=== PATIENT | female | born 1995 | race Caucasian/White ===

== ENCOUNTER 2018-05-28 06:44 | Day surgery (SDC) | payer BC ==
[2018-05-24 12:08] VITALS: BMI 19.1
[2018-05-28] MEDS ORDERED: ceFAZolin SODIUM 1 GM VIAL ONE (09:31)
[2018-05-28] MEDS ORDERED: PROPOFOL 20 ML ONE ×3 (09:32)
[2018-05-28] MEDS ORDERED: KETOROLAC TROMETHAMINE 30 MG/1 ML VIAL ONE (09:33)
[2018-05-28] MEDS ORDERED: DEXAMETHASONE SOD PHOSPHATE 4 MG/1 ML VIAL ONE (09:33)
[2018-05-28] MEDS ORDERED: ONDANSETRON 4 MG/2 ML VIAL ONE ×2 (09:33→10:51)
[2018-05-28] MEDS ORDERED: ONDANSETRON 4 MG/2 ML VIAL IVPUSH PRN (09:55)
[2018-05-28] MEDS ORDERED: oxyCODONE HCL 5 MG TABLET PO PRN (09:55)
[2018-05-28] MEDS ORDERED: LACTATED RINGERS SOLUTION 1,000 ML IV SCH (10:00)
[2018-05-28] MEDS ORDERED: LIDOCAINE HCL 2% (20ML MULTI-DOSE VIAL) NR ONE (10:15)
[2018-05-28] MEDS ORDERED: MIDAZOLAM HCL 2 MG/2 ML SINGLE DOSE VIAL ONE ×2 (10:15→10:35)
[2018-05-28] MEDS ORDERED: BUPIVACAINE HCL/PF 2.5 MG/ML - 30 ML VIAL IJ ONE (11:17)
[2018-05-28] MEDS ORDERED: BUPIVACAINE HCL/PF 0.25% (2.5MG/ML) 10 ML VIAL IJ ONE (11:23)
[2018-05-28 12:17] VITALS: TEMP 98
[2018-05-28 13:24] VITALS: BP 110/70; PULSE 67
--- NOTE | 2018-05-31 13:07 | OP ---
DATE OF OPERATION: 05/28/2018 SURGEON: Michael Lee MD MANAGER BUSINESS: BETSEY Louise PREOPERATIVE DIAGNOSES: Medial epicondylar release with fascial release of the flexion pronator muscle complex. FINDINGS: Thickened scar tissue at tendinous insertion and fascial thickened scar tissue at muscle tendinous junction. DESCRIPTION OF PROCEDURE: Informed consent was obtained. The patient came to the operating room, where the right upper extremity was prepped and draped in sterile fashion. Point of maximal tenderness was marked prior to start of surgery. Incision was made approximately 6 cm in length from the medial epicondyle distally. The tendon was identified. The central 1/3 was excised using inverted U incision. Tendon was lifted, and on the undersurface was removed thickened scar tissue. This was sent to Pathology for evaluation. Rongeur was used along the insertion to create a bleeding interface. Evaluation of the tendon and muscle tendinous complex there was thickened scar tissue and fascia at the muscular tendinous junction. This was released with Goodwin allowing for release of the constriction and scar tissue. The wound was then irrigated with copious amounts of irrigation. The tendon was reapproximated in a slightly position with a 0 Vicryl [id number] interrupted sutures. Layered closure with 2-0 Vicryl and 4-0 nylon was performed. Sterile dressing was placed. The patient was transferred to recovery room without complication. The PA listed above was present and assisted at surgery. Their presence was absolutely medically necessary for the completion of the procedure. They helped hold the arthroscopy, pass instruments (and implants when indicated) and the procedure could not have been completed without their assistance. MICHAEL LEE M.D. [id number]
--- NOTE | 2018-06-02 18:28 | PATH ---
Surgical Pathology Report Patient Name: SANJAY JEAN-BAPTISTE Med. Rec. #: [id number] /Age/Gender: 1995 (Age: 22) / F Account: [id number] Location: [facility] AM[facility] Taken: 05/28/2018 Received: 05/28/2018 Reported: 06/02/2018 Physicians: Ric Contreras M.D. Specimen(s) Received SCAR TISSUE AND BONE SPUR OF RIGHT MEDIAL EPICONDIAL Clinical History Medial epicondylitis-right elbow Final Diagnosis SCAR TISSUE AND BONE SPUR OF RIGHT MEDIAL CONDYLE, EXCISION: DENSE FIBROCONNECTIVE TISSUE WITH FIBROSIS. FRAGMENTS OF BONE WITH DEGENERATIVE CHANGE. Electronically Signed Kayla Lucero M.D. Gross Description Received in formalin labeled "scar tissue and bone spur of right medial condyle" are multiple fragments of white-angulo soft tissue measuring 0.8 x 0.7 x 0.5 cm aggregate. Entire specimen is submitted in one cassette. MLSZ/05/31/2018 sanviv/05/31/2018
== END 2018-05-28 13:24 | disposition home or self-care (01) ==
LOC: FASU 06:44
PROVIDERS: ATTEND Orthopaedic Surgery
PROC: 0LN30ZZ Release Right Upper Arm Tendon, Open Approach (ICD-10-PCS; principal; 2018-05-28 08:30)
DX: M77.01 Medial epicondylitis, right elbow (principal)
CPT/HCPCS: 84703; 88304-TC; 94760